=== PATIENT | female | born 1950 | race Caucasian/White ===

== ENCOUNTER 2023-04-03 10:25 | Emergency (ER) | payer OTHER, MEDICARE ==
[2023-04-03 10:40] VITALS: BP 157/65; PULSE 97; RESP 18; TEMP 98.7; BMI 20.7
== END 2023-04-03 11:35 | disposition home or self-care (01) ==
LOC: FER 10:25
DX: M25.552 Pain in left hip (principal); W19.XXXA Unspecified fall, initial encounter
CPT/HCPCS: 73502-TC-LT-FY; 99283-25